=== PATIENT | female | born 1990 | race African-American/Black ===

== ENCOUNTER 2019-07-31 17:30 | Emergency (ER) | payer MEDICAID ==
[2019-07-31] MEDS ORDERED: ACETAMINOPHEN 325 MG TABLET PO ONE (19:35)
--- NOTE | 2019-07-31 19:38 | ER Document Report ---
HPI - HPI Time Seen by Provider: 07/31/19 19:24 Pain Level: 2 Context: Patient is a 28-year-old female who presents the emergency department with a chief complaint of body aches. Patient reports this morning she woke up with body aches. Patient reports this did start in her hands and she noticed it while she was doing the dishes. Patient reports throughout the day she is felt fatigued with chills. Patient reports she also has a headache. Patient denies runny nose, fever, congestion, sore throat, ear pain, nausea, vomiting, diarrhea or abdominal pain. Patient denies sick contacts. Patient reports her last dose of ibuprofen was around 3 PM. Patient reports her last menstrual cycle was at the beginning of July. Patient concerned that she may have influenza. Patient denies any other symptoms. Patient reports a normal appetite. Patient also reports having chronic neck pain. Patient reports that her body aches have made her chronic neck pain worse. Patient reports her neck pain goes all the way down her spine which is normal just more intense since having the body aches. Patient denies past medical history or surgical history. Patient denies home medications. Past Medical History - General Information source: Patient - Social History Smoking Status: Current Every Day Smoker Frequency of alcohol use: None Drug Abuse: None Lives with: Family Family History: None Patient has suicidal ideation: No Patient has homicidal ideation: No - Past Medical History Cardiac Medical History: Reports: None Pulmonary Medical History: Reports: None EENT Medical History: Reports: None Neurological Medical History: Reports: None Endocrine Medical History: Reports: None Renal/ Medical History: Reports: None Malignancy Medical History: Reports: None GI Medical History: Reports: None Musculoskeletal Medical History: Reports None Skin Medical History: Reports None Psychiatric Medical History: Reports: None Infectious Medical History: Reports: None Surgical Hx: Negative Vertical Provider Document - CONSTITUTIONAL Agree With Documented VS: Yes Exam Limitations: No Limitations General Appearance: No Apparent Distress Notes: GENERAL: Well-appearing, well-nourished and in no acute distress. HEAD: Atraumatic, normocephalic. EYES: Pupils equal round and reactive to light, extraocular movements intact, sclera anicteric, conjunctiva are normal. ENT: TMs normal, nares patent, oropharynx clear without exudates. Moist mucous membranes. NECK: Normal range of motion, supple without lymphadenopathy or JVD. LUNGS: Breath sounds clear to auscultation bilaterally and equal. No wheezes rales or rhonchi. HEART: Regular rate and rhythm without murmurs, rubs or gallops. ABDOMEN: Soft, nontender, normoactive bowel sounds. No guarding, no rebound. No masses appreciated. BACK: No cervical, thoracic, lumbar midline tenderness. No saddle anesthesia, normal distal neurovascular exam. GENITOURINARY: Deferred. EXTREMITIES: Normal range of motion, no pitting or edema. No clubbing or cyanosis. NEUROLOGICAL: Cranial nerves II through XII grossly intact. Normal speech, normal gait. PSYCH: Normal mood, normal affect. SKIN: Warm, Dry, normal turgor, no rashes or lesions noted. Course - Re-evaluation Re-evalutation: 07/31/19 19:37 Patient is completely nontoxic appearing in triage. Patient is not febrile, tachycardic, hypotensive. Will obtain influenza as well as a urine and urine . Patient symptoms started today only. 07/31/19 21:14 Patient's influenza and urine test were negative. Patient will be discharged. Patient nontoxic-appearing. Patient continues to not have a fever, tachycardic or hypotensive. Patient no acute distress. Patient was given strict return precautions. - Vital Signs Vital signs: Temp Pulse Resp BP Pulse Ox 99.2 F 87 16 103/63 98 07/31/19 18:44 07/31/19 18:44 07/31/19 18:44 07/31/19 18:44 07/31/19 18:44 - Laboratory Laboratory results interpreted by me: 07/31/19 21:14 Laboratory 07/31/19 07/31/19 20:00 20:00 Urine Color YELLOW Urine Appearance CLEAR Urine pH 6.0 Ur Specific [place] 1.011 Urine Protein NEGATIVE Urine Glucose (UA) NEGATIVE Urine Ketones NEGATIVE Urine Blood NEGATIVE Urine Nitrite NEGATIVE Urine Bilirubin NEGATIVE Urine Urobilinogen NEGATIVE Ur Leukocyte Esterase NEGATIVE Urine WBC (Auto) 1 Squamous Epi Cells Auto 3 Urine Mucus (Auto) RARE Urine Ascorbic Acid NEGATIVE Urine HCG, Qual NEGATIVE Influenza A (Rapid) NEGATIVE Influenza B (Rapid) NEGATIVE - Diagnostic Test Radiology reviewed: Reports reviewed Discharge - Discharge Clinical Impression: Chills (without fever), Myalgia Condition: Stable Disposition: HOME, SELF-CARE Additional Instructions: *Today was seen in the emergency department for body aches. We did test you for a urinary tract infection, and influenza. All of these tests were negative. It is unsure what is causing the symptoms although you could be coming down with a virus. If you do develop a fever take Tylenol and ibuprofen. Return to the emergency department if you develop any new or worsening symptoms. USE OF ACETAMINOPHEN (Tylenol): Acetaminophen may be taken for pain relief or fever control. It's much safer than aspirin, offering a wider range of "safe" dosages. It is safe during . Some brand names are Tylenol, Panadol, Datril, Anacin 3, Tempra, and Liquiprin. Acetaminophen can be repeated every four hours. The following are maximum recommended dosages: WEIGHT Dose Drops Elixir Chewable(80mg) (LBS.) drprs=droppers tsp=teaspoon 6 40 mg 0.4 ml (1/2) 6-11 80 mg 0.8 ml (full) tsp 1 tab 12-16 120 mg 1 1/2 drprs 3/4 tsp 1 1/2 tabs 17-23 160 mg 2 drprs 1 tsp 2 tabs 24-30 240 mg 3 drprs 1 1/2 tsp 3 tabs 30-35 320 mg 2 tsp 4 tabs 36-41 360 mg 2 1/4 tsp 4 1/2 tabs 42-47 400 mg 2 1/2 tsp 5 tabs 48-53 480 mg 3 tsp 6 tabs 54-59 520 mg 3 1/4 tsp 6 1/2 tabs 60-64 560 mg 3 1/2 tsp 7 tabs 65-70 600 mg 3 3/4 tsp 7 1/2 tabs 71-76 640 mg 4 tsp 8 tabs 77-82 720 mg 4 1/2 tsp 9 tabs 83-88 800 mg 5 tsp 10 tabs >89 pounds or adults 650 mg to 900 mg Acetaminophen can be repeated every four hours. Maximum dose not to exceed 4000 mg a day. These maximum recommended dosages are slightly higher than the dosages written on the product container, but these dosages are very safe and below the toxic dosage for acetaminophen. Forms: Return to Work
[2019-07-31 20:29] LABS: APPEARANCE,URINE CLEAR; BILIRUBIN,URINE NEGATIVE (NEGATIVE); COLOR,URINE YELLOW; GLUCOSE, URINE NEGATIVE (NEGATIVE); KETONES,URINE NEGATIVE (NEGATIVE); LEUKOCYTE ESTERASE,URINE NEGATIVE (NEGATIVE); NITRITE,URINE NEGATIVE (NEGATIVE); PROTEIN,URINE NEGATIVE (NEGATIVE); URINE SPECIFIC GRAVITY 1.011; UROBILINOGEN,URINE NEGATIVE mg/dL (<2.0)
[2019-07-31 20:37] LABS: A TYPE INFLUENZA AG NEGATIVE (NEGATIVE); B INFLUENZA AG NEGATIVE (NEGATIVE)
[2019-07-31 21:29] VITALS: BP 103/56
== END 2019-07-31 21:30 | disposition home or self-care (01) ==
LOC: ER 17:30
DX: M79.10 Myalgia, unspecified site (principal); R68.83 Chills (without fever); R53.83 Other fatigue; R51 Headache; M54.2 Cervicalgia; G89.29 Other chronic pain; F17.200 Nicotine dependence, unspecified, uncomplicated
CPT/HCPCS: 99283; 81025; 81001; 87804; J3490